=== PATIENT | male | born 1965 | race Caucasian/White ===

== ENCOUNTER 2016-10-02 11:36 | Emergency (ER) | payer BC ==
[~2016-10-02] VITALS: Ht 177.8 cm; Wt 84.0 kg
[~2016-10-02 11:36] MED LIST: ROBA750T PO; SERT-129 PO
[2016-10-02 11:38] VITALS: BP 136/76; PULSE 98; RESP 16; TEMP 98.3; O2SAT 99
--- NOTE | 2016-10-02 11:57 | PD ---
Physical Exam Time Seen by Provider: 11:56 Narrative 51 y/o male here for evaluation of lower back pain, R leg pain for a few months , worse since last night. Hx of R hip replacement. Vital signs reviewed. Seen at triage desk. Awaiting bed placement. Data Data Last Documented VS Vital Signs Date Time Temp Pulse Resp B/P Pulse Ox O2 Delivery O2 Flow Rate FiO2 10/02/16 11:38 98.3 98 16 136/76 99 MDM Medical Record Reviewed: Yes Supervised Visit with HOWARD: No Jeremias Peraza Oct 02, 2016 11:57
[2016-10-02] MEDS ORDERED: ZOLO100T PO (13:43)
[2016-10-02] MEDS ORDERED: KETOROLAC TROMETHAMINE 60 MG/2 ML (IM) VIAL IM ONE (13:45)
[2016-10-02] MEDS ORDERED: ORPHENADRINE INJ 60 MG/2 ML AMP IM ONE (13:45)
--- NOTE | 2016-10-02 13:49 | PD ---
HPI Chief Complaint: Back/ Neck Pain or Injury Time Seen by Provider: 13:42 Travel History International Travel<30 days: No Contact w/Intl Traveler<30days: No Traveled to known affect area: No History of Present Illness HPI 51-year-old male presents emergency Department with complaint of right hip pain and right lower back pain with worsening last night. Denies new or recent injury. He has history of right hip replacement 1 year ago and 6 months ago it started giving him his problems. He's been following up with primary care with multiple x-rays that showed possible loosening of hardware in the hip. He has also been told that he might have sciatica. He does have a referral to Dr. Knox, orthopedic, and has an appointment in one month. Last night he had worsening of pain and was unable to move his leg without severe pain. He is using crutches for support. He has taken ibuprofen and Tylenol with minimal relief of symptoms. Pain is worse with movement, bearing weight. Denies paresthesias, loss of sensation to the affected extremity. Reports decreased range of motion at the hip. Denies fever, vomiting. Denies IV drug use, cancer. Denies encopresis, incontinence, saddle anesthesias. Has no other medical complaints. No known allergies. No other modifying factors or associated signs and symptoms. PFSH Past Medical History Hx Anticoagulant Therapy: No Anxiety: Yes Cardiovascular Problems: Yes (CHOL) Diabetes: No Social History Alcohol Use: Yes Tobacco Use: No Substance Use: No Allergies-Medications (Allergen,Severity, Reaction): Coded Allergies: No Known Allergies (Unverified , 10/02/16) Reported Meds & Prescriptions Reported Meds & Active Scripts Active Flexeril (Cyclobenzaprine HCl) 10 Mg Tab 10 Mg PO TID PRN Ibuprofen 800 Mg Tab 800 Mg PO Q6HR PRN Reported Zoloft (Sertraline HCl) 100 Mg Tab 150 Mg PO DAILY Review of Systems Except as stated in HPI: all other systems reviewed are Neg Physical Exam Narrative GENERAL: Well-nourished, well-developed male patient, in no acute distress; afebrile, nontoxic-appearing SKIN: Warm and dry. HEAD: Atraumatic. Normocephalic. EYES: Pupils equal and round. No scleral icterus. No injection or drainage. ENT: Mucosa pink and moist. Airway patent. NECK: Trachea midline. CARDIOVASCULAR: Regular rate. RESPIRATORY: No accessory muscle use. GASTROINTESTINAL: Flat. MUSCULOSKELETAL: Unable to assess range of motion of the hip secondary to patient guarding and pain; surgical scar noted; area is without erythema, edema , or ecchymosis; [-] tenderness on abduction; no leg length discrepancy. Right lower extremity is supple and non-tense with 2+ pedal pulse and sensory intact and without erythema or edema. BACK: Point tenderness on palpation to the right iliosacral area. NEUROLOGICAL: Awake and alert. Oriented 3. No obvious cranial nerve deficits. Motor grossly within normal limits. Normal speech. PSYCHIATRIC: Appropriate mood and affect; insight and judgment normal. Data Data Last Documented VS Vital Signs Date Time Temp Pulse Resp B/P Pulse Ox O2 Delivery O2 Flow Rate FiO2 10/02/16 11:38 98.3 98 16 136/76 99 Orders Hip, Uni(Ap&Lat) W Ap Pelvis (10/02/16 13:41) Ketorolac Inj (Toradol Inj) (10/02/16 13:45) Orphenadrine Inj (Norflex Inj) (10/02/16 13:45) MDM Medical Decision Making Medical Screen Exam Complete: Yes Emergency Medical Condition: Yes Medical Record Reviewed: Yes Differential Diagnosis Arthritis, hip pain, sciatica Narrative Course 51-year-old male with history of right hip replacement 1 year ago with continued pain over the past 6 months and worsening of pain last night. He has an appointment with Dr. Mckeon, orthopedics, in one month but was concerned of increasing pain last night. Denies new or recent injury. Denies fever, vomiting. He is afebrile and nontoxic-appearing. Unable to assess range of motion secondary to patient guarding and pain. The patient does have reproducible tenderness to the right iliosacral area and has been told he may be experiencing sciatica. Toradol and Norflex administered in the ER. Right hip with AP pelvis x-ray ordered. 1450: Right hip x-ray with no acute findings and prosthesis in place. Instructed patient to follow up with orthopedic at scheduled appointment. Ibuprofen and Flexeril prescribed for home. Patient has crutches for support. Patient verbalizes understanding and agreement with treatment plan. Patient is medically cleared and stable for discharge. Discussed reasons to return to the emergency department. Instructed patient to follow up with primary care provider. Patient agrees with treatment plan. The patients vital signs are stable and the patient is stable for outpatient follow-up and treatment. Patient discharged home, stable and in no acute distress. Diagnosis Primary Impression: Right hip pain Referrals: Orthopaedic Surgeon Primary Care Physician Patient Instructions: General Instructions, Hip Pain (ED) Departure Forms: Tests/Procedures, Work Release Special Instructions: Unable to return to work until cleared by orthopedics Additional Instructions: Tylenol or ibuprofen as directed and as needed for pain Flexeril as prescribed and as needed for muscle spasms Heating pad and/or ice to affected area to reduce pain Avoid aggravating activities; increase activity as tolerated Crutches as needed for support Follow-up with primary care provider Follow-up with orthopedic surgeon Return to emergency department immediately with worsening of symptoms Med/Other Pt SpecificInfo: Prescription(s) given Scripts Cyclobenzaprine (Flexeril)10 Mg Tab10 Mg PO TID PRN (MUSCLE SPASM) #30 TAB Ref 0 Prov:Whitney Oconnor 10/02/16 Ibuprofen 800 Mg Ulh738 Mg PO Q6HR PRN (PAIN) #30 TAB Ref 0 Prov:Whitney Oconnor 10/02/16 Disposition: 01 DISCHARGE HOME Condition: Stable Whitney Oconnor Oct 02, 2016 13:49
--- NOTE | 2016-10-02 14:36 | RADRPT ---
EXAM DATE/TIME: 10/02/2016 14:05 [facility] COMPARISON: No previous studies available for comparison. INDICATIONS : Right hip pain, no injury. MEDICAL HISTORY : None. SURGICAL HISTORY : Right total hip replacement in 2014 ENCOUNTER: Initial ACUITY: 4 - 6 days PAIN SCORE: 10/10 LOCATION: Right proximal hip FINDINGS: The patient is status post total hip arthroplasty. Prosthesis is well seated. Alignment is anatomic . Fracture is not appreciated. CONCLUSION: Negative for fracture. Victor Hugo Cruz MD FACR on October 02, 2016 at 14:23 Board Certified Radiologist. This report was verified electronically.
[2016-10-02] MEDS ORDERED: IBUP800T23 PO (14:52)
[2016-10-02] MEDS ORDERED: CYCL1TAB29 PO (14:52)
== END 2016-10-02 15:15 | disposition home or self-care (01) ==
LOC: NEPK 11:36
DX: M25.551 Pain in right hip (principal); Z96.641 Presence of right artificial hip joint
CPT/HCPCS: 73502; 96372; 99284; J1885; J2360

== ENCOUNTER → 2016-10-17 | Day surgery (SDC) | payer BC ==
[~2016-10-17] MED LIST changes: +CYCL1TAB29 PO; +IBUP800T23 PO; +IOHEXOL 180 MG/ML 20 ML VIAL (for RAD DIAG) ONE; +LACTATED RINGER'S 1000 ML INJ 1,000 ML ONE; +MIDAZOLAM HCL 2 MG/2 ML VIAL ONE; +PROPOFOL 500 MG/50 ML BTL IV ONE; -ROBA750T PO; -SERT-129 PO; +ZOLO100T PO
--- NOTE | 2016-10-17 15:45 | TN ---
cc: MARLEEN EISENBERG M.D. DATE OF SURGERY: October 17, 2016 PREOPERATIVE DIAGNOSIS Right painful total hip arthroplasty, possible malfunction prosthesis, possible infected total hip arthroplasty; right hip stiffness (arthrogryposis). POSTOPERATIVE DIAGNOSIS Right painful total hip arthroplasty, possible malfunction prosthesis, possible infected total hip arthroplasty; right hip stiffness (arthrogryposis). PROCEDURE: Right hip aspiration, hip arthrogram, manipulation, fluoroscopic guidance of needle under anesthesia. SURGEON Warren Eisenberg MD ASSESSMENT Staff SPECIMENS Right hip synovial fluid sent for Gram stain aerobic, anaerobic culture and sensitivity and for fungal smear and cultures. ESTIMATED BLOOD LOSS: NONE. COMPLICATIONS: None. ANESTHESIA; General. TIVA. DRAINS: None. TOURNIQUET TIME: N/A. CONDITION: Stable PLAN OF ACTIVITY: The plan of activity is per orders. PROCEDURE: The patient was brought into the operating room and had satisfactory anesthesia by the Department of Anesthesia. PLAN The right hip and lower extremity was prepped and draped in usual sterile manner. Under fluoroscopic guidance an 18 gauge spinal needle introduced into the right hip joint. It aspirated approximately 1 cc of blood-tinged fluid. This was sent to microbiology for gram stain culture, aerobic, anaerobic culture sensitivity and for fungal smear and culture. The 20 cc of Pantopaque was used for arthrogram. The dye was injected in the same spot as the needle. I appeared to be tracking to the femoral component and also possibly to the acetabular component. An 18 gauge spinal needle was remove manipulation of the hip was preformed. 120 degrees abduction was 45 degrees of good rotation. Band-Aid was placed over the aspiration site. The patient tolerated the procedure well. In stable and satisfactory condition. X-RAYS Right hip two views took from my operative border. Status post right hip manipulation no obvious fracture dislocation subluxation. ASSESSMENT AND PLAN: Status post right total hip arthroplasty with possible radiographic loosening of the acetabular component and femoral component. MD ALEXANDER Mayo/aleksey /2:37 PM /3:50 PM
== END | disposition home or self-care (01) ==
LOC: ESDC 12:53
PROVIDERS: ATTEND Orthopaedic Surgery Orthopaedic Surgery of the Spine
DX: M25.651 Stiffness of right hip, not elsewhere classified (principal); T84.84XA Pain due to internal orthopedic prosthetic devices, implants and grafts, initial encounter; Q68.8 Other specified congenital musculoskeletal deformities
CPT/HCPCS: 01200; 27275; 73501; 76000; 86403; 87070; 87102; 87205; 87206; J2250; J3010; J7120; Q9965

== ENCOUNTER 2016-10-24 07:47 | Inpatient (IN) | payer BC ==
[~2016-10-24] VITALS: Ht 177.8 cm; Wt 74.5 kg
[~2016-10-24 07:47] MED LIST changes: -CYCL1TAB29 PO; -IBUP800T23 PO; -IOHEXOL 180 MG/ML 20 ML VIAL (for RAD DIAG) ONE; -LACTATED RINGER'S 1000 ML INJ 1,000 ML ONE; -MIDAZOLAM HCL 2 MG/2 ML VIAL ONE; -PROPOFOL 500 MG/50 ML BTL IV ONE
[2016-10-26 08:40] VITALS: BP 127/88; PULSE 81; RESP 16; TEMP 98.1; O2SAT 98
[2016-10-26] MEDS ORDERED: VANCOMYCIN 1000 MG/NS 250 ML (for <70 kg) IV SCH ×2 (08:45)
[2016-10-26] MEDS ORDERED: SODIUM CHLORID 0.9% 500 ML IV PRN (08:45)
[2016-10-26] MEDS ORDERED: POVIDONE IODINE 5% (ANTISEPSIS KIT) 4 APPLICATIONS EACH NARE PRN (08:45)
[2016-10-26] MEDS ORDERED: INSULIN HUMAN REGULAR 1,000 UNITS/10 ML VIAL SQ PRN (08:45)
[2016-10-26] MEDS ORDERED: LACTATED RINGER'S 1000 ML IV PRN (08:45)
[2016-10-26] MEDS ORDERED: METOPROLOL TARTRATE 25 MG TAB PO PRN (08:45)
[2016-10-26] MEDS ORDERED: ceFAZolin 2 GM PREMIX 50 ML IV SCH (08:45)
[2016-10-26] MEDS ORDERED: CHLORHEXIDINE GLUCONATE 2 % 1 PACK (2 CLOTHS) TOPICAL PRN (08:45)
[2016-10-26] MEDS ORDERED: CHLORHEXIDINE GLUCONATE 4% SOLN 120 ML BTL TOPICAL SCH (08:45)
[2016-10-26] MEDS ORDERED: NORC5TAB PO (08:54)
[2016-10-26] MEDS ORDERED: FAMOTIDINE 20 MG/2 ML VIAL ONE (09:58)
[2016-10-26] MEDS ORDERED: MIDAZOLAM HCL 2 MG/2 ML VIAL ONE (09:58)
[2016-10-26] MEDS ORDERED: DEXAMETHASONE SOD PHOS 4 MG/ML VIAL ONE (09:58)
[2016-10-26] MEDS ORDERED: SODIUM CHLOR 0.9% 250 ML INJ 250 ML ONE (10:15)
[2016-10-26] MEDS ORDERED: VANCOMYCIN HCL 1000 MG VIAL ONE (10:16)
[2016-10-26] MEDS ORDERED: LACTATED RINGER'S 1000 ML INJ 2,000 ML IV ONE (12:00)
[2016-10-26] MEDS ORDERED: PHENYLEPH/NS 1000 MCG/10 ML SYR IV ONE (12:00)
[2016-10-26] MEDS ORDERED: BUPIVACAINE LIPOSO PF 1.3% INJ 20 ML in SODIUM CHLORIDE 0.9% INJ 40 ML P-ARTICULR SCH (12:00)
[2016-10-26] MEDS ORDERED: PROPOFOL 200 MG/20 ML AMP IV ONE (12:00)
[2016-10-26] MEDS ORDERED: NORMOSOL R INJ 3,000 ML IV ONE (12:00)
[2016-10-26] MEDS ORDERED: TOBRAMYCIN SULFATE 1200 MG VIAL OTHER ONE (12:00)
[2016-10-26] MEDS ORDERED: GENTAMICIN SULFATE 80 MG/2 ML VIAL IRRIGATION ONE (12:06)
[2016-10-26] MEDS ORDERED: VANCOMYCIN HCL 1000 MG VIAL OTHER ONE (12:54)
[2016-10-26] MEDS: LACTATED RINGER'S 1000 ML INJ 1,000 ML IV SCH (14:33)
[2016-10-26 14:39] LABS: AUTOMATED NEUTROPHIL # 7.8 TH/MM3 (1.8-7.7); BASOPHIL # 0.1 TH/MM3 (0-0.2); BASOPHIL % 0.6 % (0.0-2.0); EOSINOPHIL % 0.2 % (0.0-4.0); HEMO FLAGS DIFF FINAL; LYMPH % 11.2 % (9.0-44.0); MEAN CELL VOLUME 83.9 FL (80.0-100.0); MEAN CORPUSCULAR HEMOGLOBIN 28.6 PG (27.0-34.0); MEAN CORPUSCULAR HGB CONC 34.1 % (32.0-36.0); MONO % 1.6 % (0.0-8.0); NEUT % 86.4 % (16.0-70.0); PLATELET COUNT 292 TH/MM3 (150-450); RED CELL DISTRIBUTION WIDTH 14.2 % (11.6-17.2); WHITE BLOOD COUNT 9.1 TH/MM3 (4.0-11.0)
--- NOTE | 2016-10-26 14:40 | HHI.PR ---
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 and Cesar Garcia M.D. Poker Manager(s): Fatimah Moreno PA-C Procedure: Removal of infected right total hip arthroplasty, irrigation and debridement, insertion of temp. prosthetic with antibiotic beads Complications: none Specimen(s) removed: 3 tissue samples Estimated blood loss: 1500cc Anesthesia: General Drains: None Patient to: PACU Patient Condition: Good Implant/Devices: SEE IMPLANT LOG (if applicable) Date/Time of Procedure: SEE SURGICAL CARE RECORD Herman Garcia MD Oct 26, 2016 14:40
[2016-10-26] MEDS ORDERED: WALKER WHEELS/F1 MIS (14:41)
[2016-10-26] MEDS ORDERED: BEDSIDE COMMODE1 MI1 (14:42)
[2016-10-26] MEDS ORDERED: ONDANSETRON HCL 4 MG/2 ML VIAL IVP PRN (14:45)
[2016-10-26] MEDS ORDERED: MORPHINE SULFATE 8 MG/ML INJ IM PRN (14:45)
[2016-10-26] MEDS ORDERED: ALUMINUM/MAGNESIUM/SIMETH 30 ML CUP PO PRN (14:45)
[2016-10-26] MEDS ORDERED: SODIUM CHLORIDE 0.9% FLUSH 5 ML FLUSH IVF PRN (14:45)
[2016-10-26] MEDS: SODIUM CHLORIDE 0.9% FLUSH 5 ML FLUSH IVF SCH ×2 (14:45→21:00)
[2016-10-26] MEDS ORDERED: Post-op Orders (for Pharmacy) MISC XX ONE (14:45)
[2016-10-26] MEDS ORDERED: ZOLPIDEM TARTRATE 5 MG TAB PO PRN (14:45)
--- NOTE | 2016-10-26 14:45 | HHI.FF ---
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 Starting on 11/10, text/call result to Fatimah VILCHIS [phone] (out of town until 11/07) Administration of IV abx through PICC line I have seen patient Hussain Santiago on 10/26/16. My clinical findings support the need for the requested home health care services because: Limited ability to care for self I certify that my clinical findings support that this patient is homebound because: Post-op weakness Unsteady gait/balance Herman Garcia MD Oct 26, 2016 14:45
--- NOTE | 2016-10-26 14:55 | RADRPT ---
EXAM DATE/TIME: 10/26/2016 11:34 [facility] COMPARISON: HIP RIGHT AP ONLY WO AP PELVIS, October 17, 2016, 13:11. INDICATIONS : Right anterior hip hardware removal with antibiotic spacer placement. MEDICAL HISTORY : Arthritis. SURGICAL HISTORY : Right total hip replacement. ENCOUNTER: Initial ACUITY: 1 day PAIN SCORE: Non-responsive. LOCATION: Right anterior hip. FINDINGS: A two view examination of the right hip was performed. Postsurgical changes following removal of a ri ght hip prosthesis. Antibiotic spacer has been placed. CONCLUSION: Status post removal of right hip replacement and placement of an antibiotic spacer. David Alfredo MD on October 26, 2016 at 14:51 Board Certified Radiologist. This report was verified electronically.
[2016-10-26] MEDS ORDERED: *morphine SULFATE 8 MG/ML PERIprocedure ONLY ONE (15:08)
[2016-10-26 15:23] VITALS: BP 73/40; PULSE 61; RESP 16; TEMP 97.2; O2SAT 100
[2016-10-26] MEDS ORDERED: DO NOT ADM ANY ANTICOAGULANT DRUGS PRN (15:45)
[2016-10-26] MEDS ORDERED: PILL SPLITTER OTHER PRN (15:45)
--- NOTE | 2016-10-26 16:00 | RADRPT ---
EXAM DATE/TIME: 10/26/2016 15:05 [facility] COMPARISON: HIP RIGHT (AP&LAT 2/3VWS) W AP PELVIS, October 02, 2016, 14:05. FLUOROSCOPY PORTABLE UP TO 1HR, September, 0:00. HIP RIGHT AP ONLY WO AP PELVIS, October 17, 2016, 13:11. HIP RIGHT (AP&LAT 2/3VWS) WO AP PELVIS, October 26, 2016, 11:34. INDICATIONS : Post-op removal of right hip arthroplasty with placement of antibiotic bone spacer. MEDICAL HISTORY : Arthritis. SURGICAL HISTORY : Right total hip replacement. ENCOUNTER: Initial ACUITY: 1 day PAIN SCORE: 5/10 LOCATION: Right hip FINDINGS: There has been interval removal of a right total hip arthroplasty with placement of an antibiotic spa cer. Antibiotic pellets are also present in the operative bed. Configuration is satisfactory. The adj acent pelvis remains intact and unremarkable. CONCLUSION: Satisfactory appearance post right RAHEEM hardware removal Dallas Baca MD on October 26, 2016 at 15:51 Board Certified Radiologist. This report was verified electronically.
[2016-10-26] MEDS ORDERED: *HYDROmorphone PF 1 MG VIAL PERIprocedural Use ONLY ONE ×2 (16:25→16:31)
[2016-10-26 16:55] LABS: HEMATOCRIT 30.2 % (39.0-51.0); REVIEW FLAG FINAL
[2016-10-26 17:11] VITALS: BP 93/54; PULSE 88; RESP 16; TEMP 97.2; O2SAT 100
[2016-10-26] MEDS: ACETAMINOPHEN/HYDROcodone 325 MG/7.5 MG TAB PO PRN ×3 (17:50→22:13)
[2016-10-26 18:54] VITALS: BP 111/67; PULSE 88; RESP 20; TEMP 97.3; O2SAT 99
[2016-10-26 20:45] VITALS: BP 108/61; PULSE 89; RESP 17; TEMP 97.7; O2SAT 97
[2016-10-26] MEDS: CYCLOBENZAPRINE HCL 10 MG TAB PO PRN (21:59)
[2016-10-27] VITALS (11 sets, daily range): BP systolic 96–122; BP diastolic 54–69; PULSE 62–100; RESP 16–18; TEMP 97.5–98.5; O2SAT 96–98
[2016-10-27] MEDS: ACETAMINOPHEN/HYDROcodone 325 MG/7.5 MG TAB PO PRN ×6 (01:56→20:57)
[2016-10-27] MEDS: LACTATED RINGER'S 1000 ML INJ 1,000 ML IV SCH ×3 (03:03→15:34)
--- NOTE | 2016-10-27 07:12 | PD.ORT.PN ---
Subjective Post Op Day #: POD#1 R Hip Removal infected,loose THR;antibiotic spacer Subjective Remarks C/O post op pain No sob,chest pain Explained to patient operative findings;answered multiple questions Objective Vitals Vital Signs Date Time Temp Pulse Resp B/P Pulse Ox O2 Delivery O2 Flow Rate FiO2 10/27/16 04:25 97.7 68 16 99/54 98 10/27/16 00:58 97 Nasal Cannula 2.00 10/27/16 00:03 97.5 83 18 115/64 96 10/26/16 20:45 97.7 89 17 108/61 97 10/26/16 18:54 97.3 88 20 111/67 99 10/26/16 17:45 96 16 98/56 100 Nasal Cannula 2 10/26/16 17:30 90 16 100/55 100 Nasal Cannula 2 10/26/16 17:15 85 16 93/52 100 Nasal Cannula 2 10/26/16 17:11 97.2 88 16 93/54 100 10/26/16 17:00 80 16 93/53 100 Nasal Cannula 2 10/26/16 16:45 76 16 91/54 100 Nasal Cannula 2 10/26/16 16:30 73 16 110/59 100 Nasal Cannula 2 10/26/16 16:15 67 16 79/43 100 Nasal Cannula 2 10/26/16 16:00 66 16 87/64 100 Nasal Cannula 2 10/26/16 15:45 64 16 85/48 100 Nasal Cannula 2 10/26/16 15:40 66 16 92/54 100 Nasal Cannula 2 10/26/16 15:30 97.2 64 16 85/48 100 Nasal Cannula 2 10/26/16 15:23 97.2 61 16 73/40 100 10/26/16 15:20 62 16 74/41 100 Nasal Cannula 2 10/26/16 15:15 60 16 73/36 100 Nasal Cannula 2 10/26/16 15:10 59 16 55/26 100 Nasal Cannula 2 10/26/16 15:00 66 16 86/59 100 Nasal Cannula 2 10/26/16 14:56 97.2 66 16 94/52 100 Nasal Cannula 2 10/26/16 08:40 98.1 81 16 127/88 98 I/O 10/26/16 10/26/16 10/26/16 10/27/16 10/27/16 10/27/16 07:00 15:00 23:00 07:00 15:00 23:00 Intake Total 5000 ml 2871 ml 937 ml Output Total 2120 ml 1250 ml 1250 ml Balance 2880 ml 1621 ml -313 ml Intake Oral 730 ml 480 ml IV Total 1641 ml 457 ml Packed Cells 500 ml Other 5000 ml Output Urine Total 1250 ml 1250 ml Estimated Blood Loss 1500 ml Other 620 ml # Voids 1 # Bowel Movements 0 Result Diagram: 10/26/16 1612 Imaging Last 24 hours Impressions Pelvis X-Ray 10/26/16 1433 Signed Impressions: Service Date/Time: September 15:05 - CONCLUSION: Satisfactory appearance post right RAHEEM hardware removal Dallas Baca MD Objective Remarks N/V intact dressings dry Assessment & Plan Assessment and Plan Ortho stable Await ID evaluation/management Await C+S results PICC line D/C home on October 29 with [facility] R LE 25% WBA Coumadin,TEDS,Sequentials for DVT prophylaxsis Herman Garcia MD Oct 27, 2016 07:12
[2016-10-27 07:31] LABS: INTERNATIONAL NORMALIZED RATIO 1.1 RATIO; PROTHROMBIN TIME - PATIENT 11.7 SEC (9.8-11.6)
[2016-10-27] MEDS: SERTRALINE HCL 100 MG TAB PO SCH (09:35)
[2016-10-27] MEDS: SODIUM CHLORIDE 0.9% FLUSH 5 ML FLUSH IVF SCH ×2 (09:35→20:51)
[2016-10-27] MEDS: CYCLOBENZAPRINE HCL 10 MG TAB PO PRN (09:36)
--- NOTE | 2016-10-27 11:35 | HHI.FF ---
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 [] May leave port accessed during therapy. [] May leave peripheral site accessed for duration of therapy. [x] If patient has SOB or respiratory distress, check oxygen saturation. If less than 90% or clinical signs of respiratory distress, administer oxygen at 2 L/min. via nasal cannula and notify physician. [x] Anaphylaxis/Reaction orders: * Stop infusion. * Keep IV line open with saline flush. * Notify physician. * Monitor vital signs every 15 minutes until symptoms resolve. * Check Oxygen saturation; Oxygen at 2 L/min. via nasal cannula if less than 90% or clinical signs of respiratory distress. * Administer diphenhydramine (Benadryl) 25 mg IV STAT, (unless patient has received as pre-med). May repeat once, if necessary. * Solu-Cortef 250 mg IVP over 30-60 seconds, use 100 mg vials for each dissolution. * Epinephrine (1mg/1 ml) 0.3 mg subcutaneously or IVP now with any signs of respiratory distress. * Check with physician for new additional pre-med orders if patient is re- challenged or re-treated. [x] May remove PICC line when treatment complete, after confirming with Physician. [x] If the patient is admitted to the hospital, the ED, or transferred via EVAC , complete transfer form including medication reconciliation order sheet. Laboratory Tests Weekly Labs: BMP, Vancomycin Trough Additional Information Follow up with ID Dr. Akhtar in 1 week. José Miguel Briseno MD Oct 27, 2016 11:35
[2016-10-27] MEDS ORDERED: WARFARIN SOD 5 MG TAB PO ONE (14:00)
[2016-10-27] MEDS ORDERED: WARFARIN SOD 7.5 MG TAB PO ONE (14:00)
--- NOTE | 2016-10-27 14:11 | MB ---
cc: HERMAN EISENBERG M.D., FRANKLYN F. MD DATE OF CONSULTATION: 10/27/2016 REQUESTING PHYSICIAN: Herman Eisenberg MD. REASON FOR CONSULTATION: Infected right hip arthroplasty. HISTORY OF PRESENT ILLNESS This is a 51-year-old white male was admitted to the hospital for removal of right total hip arthroplasty due to infection. The patient was admitted and he and that underwent removal of the prosthetic left hip device yesterday. He underwent irrigation and debridement and insertion of antibiotic bone spacer. The full operative report is not available to me at this time. This consultation is requested for antibiotic management of this patient. The patient reports that he had the prosthesis inserted about a year and half ago in [place]. He stated that he started getting some problems with it approximately 6 months after and gradually over time he continued to have problems. He was evaluated at a hospital in [place] last fall for pain and swelling of the right hip. He noted that there was an area of redness at the time. He states that an aspiration was performed at [facility] [address] and there was no growth of bacteria. He was not given any antibiotics. The patient lately has been experiencing more pain at the hip, and was evaluated by orthopedic surgery and subsequently brought into the hospital for removal of the device. The culture from the surgery is pending. The gram stain showed no white cells and no organisms. Reportedly a previous culture on October 17 revealed to group B beta strep. The new culture was is pending. The patient is in no acute distress. Denies fever, chills, nausea, vomiting or other symptoms except for pain in the right hip. PAST MEDICAL HISTORY 1. Hypercholesteremia 2. Right hip replacement 3. Anxiety disorder ALLERGIES NO KNOWN DRUG ALLERGIES. MEDICATIONS 1. Coumadin. 2. Colace. 3. Cefazolin 4. Zoloft. 5. Flexeril. SOCIAL HISTORY The patient is single. No tobacco. Occasional alcohol approximately two drinks a week. No illicit drugs. FAMILY HISTORY Noncontributory. REVIEW OF SYSTEMS Negative 10-point review of systems. PHYSICAL EXAMINATION: IN GENERAL: Physical exam is a pleasant well-developed, well-nourished male in no acute distress. He is awake and alert and oriented. VITAL SIGNS: Temperature 98.5, BP 105/57, respirations 18. Heart rate 74. HEAD, EYES, EARS, NOSE, AND THROAT: Extraocular movements grossly intact, pupils reactive to light. No icterus. No conjunctival erythema. Oropharynx moist mucosa without lesions. NECK: Supple without adenopathy. LUNGS: Clear to auscultation. HEART: Regular rate and rhythm without murmurs, rubs or gallops. ABDOMEN: Bowel sounds present, soft, nontender. RECTAL: Not performed. EXTREMITIES: Right hip, there is a surgical incision which appears clean and there is no erythema. No swelling visible. The rest of the extremities have no clubbing, cyanosis or edema. SKIN: No rash. NEUROLOGIC: Nonfocal PSYCHIATRIC: The patient calm and pleasant and cooperative. LABORATORY DATA WBC 9.1, platelets 292, 86% neutrophils, hemoglobin 8.8 wound culture pending. IMPRESSION 1. Infected right hip arthroplasty. 2. Patient status post removal of arthroplasty device. 3. Culture is pending. RECOMMENDATIONS Begin vancomycin intravenous while awaiting the culture results. Without final culture report is difficult to determine antibiotic for outpatient treatment. However, given the fact that he had group B strep I would place vancomycin. We can try to arrange for him to get vancomycin out patient if case management can have antibiotic arranged and follow up on the cultures as well. However, the culture final report maybe available by tomorrow. I will order vancomycin and we will order creatinine to check the patient's renal function and also we will monitor wound culture. I have written the discharge referral antibiotic form expedite arrangement for home antibiotics. I will also recommend the patient follow up with infectious Dr. Akhtar after discharge from the hospital. Once the arrangements are made by Case management for antibiotics at home and the PICC line is inserted. The patient can be discharged. Thank you for this consultation. José Miguel Briseno MD FD/aleksey /11:46 AM /2:01 PM
[2016-10-27] MEDS ORDERED: VANCOMYCIN INJ 2,300 MG in SODIUM CHLORID 0.9% 500 ML INJ 500 ML IV SCH (15:00)
--- NOTE | 2016-10-27 15:12 | HHI.FF ---
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 [] May leave port accessed during therapy. [] May leave peripheral site accessed for duration of therapy. [x] If patient has SOB or respiratory distress, check oxygen saturation. If less than 90% or clinical signs of respiratory distress, administer oxygen at 2 L/min. via nasal cannula and notify physician. [x] Anaphylaxis/Reaction orders: * Stop infusion. * Keep IV line open with saline flush. * Notify physician. * Monitor vital signs every 15 minutes until symptoms resolve. * Check Oxygen saturation; Oxygen at 2 L/min. via nasal cannula if less than 90% or clinical signs of respiratory distress. * Administer diphenhydramine (Benadryl) 25 mg IV STAT, (unless patient has received as pre-med). May repeat once, if necessary. * Solu-Cortef 250 mg IVP over 30-60 seconds, use 100 mg vials for each dissolution. * Epinephrine (1mg/1 ml) 0.3 mg subcutaneously or IVP now with any signs of respiratory distress. * Check with physician for new additional pre-med orders if patient is re- challenged or re-treated. [x] May remove PICC line when treatment complete, after confirming with Physician. [x] If the patient is admitted to the hospital, the ED, or transferred via EVAC , complete transfer form including medication reconciliation order sheet. Laboratory Tests Weekly Labs: BMP Additional Information Follow up with ID DR. Akhtar in 1 week. José Miguel Briseno MD Oct 27, 2016 15:12
--- NOTE | 2016-10-27 15:16 | HHI.IDPN ---
Note Infectious Disease Note ID Addendum to dictation. Culture has beta streptococci. I will change the outpatient IV antibiotic to Ceftriaxone. Duration 6 weeks. Discussed with case management and new infusion form filled out. José Miguel Briseno MD Oct 27, 2016 15:16
[2016-10-27 15:23] LABS: HEMATOCRIT 29.3 % (39.0-51.0); REVIEW FLAG FINAL
[2016-10-27 15:40] LABS: BICARBONATE 31.5 MEQ/L (21.0-32.0)
--- NOTE | 2016-10-27 17:45 | RADRPT ---
EXAM DATE/TIME: 10/27/2016 17:18 [facility] COMPARISON: No previous studies available for comparison. INDICATIONS : PICC line placement. MEDICAL HISTORY : None. SURGICAL HISTORY : None. ENCOUNTER: Initial ACUITY: 1 day PAIN SCORE: 0/10 LOCATION: Bilateral chest FINDINGS: PICC line is in good position. Lungs are clear. The heart and pulmonary vascularity are normal. The portion of the bony skeleton visualized is unremarkable. CONCLUSION: PICC line in good position. Board Certified Radiologist. This report was verified electronically.
[2016-10-27] MEDS ORDERED: SODIUM CHLORIDE 0.9% FLUSH 10 ML FLUSH IV FLUSH PRN (18:45)
[2016-10-27] MEDS: DOCUSATE SODIUM 100 MG CAP PO SCH (20:50)
[2016-10-28] MEDS: LACTATED RINGER'S 1000 ML INJ 1,000 ML IV SCH ×2 (00:16→16:35)
[2016-10-28 00:22] VITALS: BP 114/62; PULSE 87; RESP 18; TEMP 98.2; O2SAT 96
[2016-10-28] MEDS: ACETAMINOPHEN/HYDROcodone 325 MG/7.5 MG TAB PO PRN ×5 (02:11→21:11)
[2016-10-28 04:28] VITALS: BP 108/63; PULSE 80; RESP 18; TEMP 98.2; O2SAT 96
[2016-10-28 06:28] LABS: INTERNATIONAL NORMALIZED RATIO 1.1 RATIO; PROTHROMBIN TIME - PATIENT 12.4 SEC (9.8-11.6)
[2016-10-28 08:00] VITALS: BP 114/68; PULSE 82; RESP 16; TEMP 98.6; O2SAT 95
[2016-10-28] MEDS: SERTRALINE HCL 100 MG TAB PO SCH (08:07)
[2016-10-28] MEDS: DOCUSATE SODIUM 100 MG CAP PO SCH (08:07)
[2016-10-28] MEDS: cefTRIAXone INJ 2,000 MG in SODIUM CHLORIDE 0.9% INJ 100 ML IV SCH (08:10)
[2016-10-28] MEDS: SODIUM CHLORIDE 0.9% FLUSH 10 ML FLUSH IV FLUSH SCH (08:11)
[2016-10-28] MEDS: SODIUM CHLORIDE 0.9% FLUSH 5 ML FLUSH IVF SCH (08:17)
[2016-10-28 12:00] VITALS: BP 114/65; PULSE 81; RESP 20; TEMP 96.9; O2SAT 95
--- NOTE | 2016-10-28 13:58 | PD.ORT.PN ---
Subjective Subjective Remarks Patient comfortable. Pain controlled. Objective Vitals Vital Signs Date Time Temp Pulse Resp B/P Pulse Ox O2 Delivery O2 Flow Rate FiO2 10/28/16 12:00 96.9 81 20 114/65 95 10/28/16 08:00 98.6 82 16 114/68 95 10/28/16 04:28 98.2 80 18 108/63 96 10/28/16 00:22 98.2 87 18 114/62 96 10/27/16 21:01 85 122/69 10/27/16 20:20 98.3 100 18 96/65 96 10/27/16 18:03 96 Nasal Cannula 2.00 10/27/16 15:48 97.7 74 18 104/56 96 I/O 10/27/16 10/27/16 10/27/16 10/28/16 10/28/16 10/28/16 07:00 15:00 23:00 07:00 15:00 23:00 Intake Total 480 ml 800 ml 1322 ml 739 ml Output Total 1250 ml 257 ml 600 ml 750 ml Balance -770 ml 543 ml 722 ml -11 ml Intake Oral 480 ml 800 ml 360 ml 240 ml IV Total 962 ml 499 ml Output Urine Total 1250 ml 257 ml 600 ml 750 ml # Bowel Movements 0 0 0 Result Diagram: 10/27/16 1503 10/27/16 1438 Other Results Laboratory Tests Test 10/28/16 05:06 Prothrombin Time 12.4 SEC (9.8-11.6) Prothromb Time International 1.1 RATIO Ratio Imaging Last 24 hours Impressions Pelvis X-Ray 10/26/16 1433 Signed Impressions: Service Date/Time: September 15:05 - CONCLUSION: Satisfactory appearance post right RAHEEM hardware removal Dallas Baca MD Objective Remarks N/V intact dressings dry Assessment & Plan Assessment and Plan Ortho stable ID evaluation/management C+S results - Group B Strep PICC line in place D/C home on October 29 with HHC R LE 25% WBA Coumadin,TEDS,Sequentials for DVT prophylaxsis Dr. Greenberg spoke and evaluated patient. Jaxon Esteban [facility] Oct 28, 2016 13:58
[2016-10-28] MEDS: WARFARIN SOD 5 MG TAB PO SCH (16:31)
[2016-10-28 17:00] VITALS: BP 112/65; PULSE 71; RESP 20; TEMP 97.6; O2SAT 95
[2016-10-28 20:20] VITALS: BP 110/66; PULSE 89; RESP 18; TEMP 98.2; O2SAT 95
[2016-10-29 00:30] VITALS: BP 110/63; PULSE 81; RESP 18; TEMP 97; O2SAT 95
[2016-10-29] MEDS: ACETAMINOPHEN/HYDROcodone 325 MG/7.5 MG TAB PO PRN ×5 (01:48→20:08)
[2016-10-29 08:00] VITALS: BP 128/76; PULSE 82; RESP 16; TEMP 97.6; O2SAT 97
--- NOTE | 2016-10-29 08:23 | PD.ORT.PN ---
Subjective Subjective Remarks Patient comfortable. Pain controlled. Objective Vitals Vital Signs Date Time Temp Pulse Resp B/P Pulse Ox O2 Delivery O2 Flow Rate FiO2 10/29/16 00:30 97.0 81 18 110/63 95 10/28/16 20:20 98.2 89 18 110/66 95 10/28/16 17:00 97.6 71 20 112/65 95 10/28/16 12:00 96.9 81 20 114/65 95 I/O 10/28/16 10/28/16 10/28/16 10/29/16 10/29/16 10/29/16 07:00 15:00 23:00 07:00 15:00 23:00 Intake Total 739 ml 1627 ml 240 ml 240 ml Output Total 750 ml 650 ml Balance -11 ml 1627 ml -410 ml 240 ml Intake Oral 240 ml 720 ml 240 ml 240 ml IV Total 499 ml 907 ml Output Urine Total 750 ml 650 ml # Voids 4 0 # Bowel Movements 0 0 0 0 Result Diagram: 10/27/16 1503 10/27/16 1438 Imaging Last 24 hours Impressions Pelvis X-Ray 10/26/16 1433 Signed Impressions: Service Date/Time: September 15:05 - CONCLUSION: Satisfactory appearance post right RAHEEM hardware removal Dallas Baca MD Objective Remarks Left hip N/V intact dressings C/D/I calves soft negative Devon's Assessment & Plan Assessment and Plan Ortho stable ID evaluation/management C+S results - Group B Strep PICC line in place D/C home on October 29 with HHC R LE 25% WBA Coumadin,TEDS,Sequentials for DVT prophylaxsis Orthopedically stable for discharge. Make sure IV antibiotic therapy is set-up. F/u with Dr. Garcia or PA in office. Jaxon Esteban Oct 29, 2016 08:23
[2016-10-29 08:25] LABS: INTERNATIONAL NORMALIZED RATIO 1.3 RATIO; PROTHROMBIN TIME - PATIENT 14.7 SEC (9.8-11.6)
[2016-10-29] MEDS: SODIUM CHLORIDE 0.9% FLUSH 5 ML FLUSH IVF SCH (09:00)
[2016-10-29] MEDS: DOCUSATE SODIUM 100 MG CAP PO SCH ×2 (10:24→20:08)
[2016-10-29] MEDS: SERTRALINE HCL 100 MG TAB PO SCH (10:24)
[2016-10-29] MEDS: cefTRIAXone INJ 2,000 MG in SODIUM CHLORIDE 0.9% INJ 100 ML IV SCH (10:27)
[2016-10-29] MEDS: SODIUM CHLORIDE 0.9% FLUSH 10 ML FLUSH IV FLUSH SCH (10:34)
[2016-10-29 12:00] VITALS: BP 107/62; PULSE 82; RESP 16; TEMP 98.5; O2SAT 95
[2016-10-29 16:00] VITALS: BP 131/76; PULSE 103; RESP 16; TEMP 98.8; O2SAT 96
[2016-10-29] MEDS: WARFARIN SOD 5 MG TAB PO SCH (16:29)
[2016-10-29] MEDS: LACTATED RINGER'S 1000 ML INJ 1,000 ML IV SCH ×2 (16:30→20:13)
[2016-10-29 20:30] VITALS: BP 124/75; PULSE 75; RESP 18; TEMP 98.3; O2SAT 98
[2016-10-30 00:27] VITALS: BP 120/70; PULSE 81; RESP 18; TEMP 98.3; O2SAT 96
[2016-10-30] MEDS: ACETAMINOPHEN/HYDROcodone 325 MG/7.5 MG TAB PO PRN ×3 (02:54→12:36)
[2016-10-30 08:00] VITALS: BP 124/66; PULSE 80; RESP 20; TEMP 96.8; O2SAT 98
[2016-10-30] MEDS: SERTRALINE HCL 100 MG TAB PO SCH (08:42)
[2016-10-30] MEDS: DOCUSATE SODIUM 100 MG CAP PO SCH (08:42)
[2016-10-30] MEDS: SODIUM CHLORIDE 0.9% FLUSH 10 ML FLUSH IV FLUSH SCH (08:43)
[2016-10-30] MEDS: cefTRIAXone INJ 2,000 MG in SODIUM CHLORIDE 0.9% INJ 100 ML IV SCH (08:43)
[2016-10-30] MEDS: SODIUM CHLORIDE 0.9% FLUSH 5 ML FLUSH IVF SCH (08:48)
[2016-10-30] MEDS ORDERED: POLYETHYLENE GLYCOL 17 GM PKG PO SCH (11:00)
[2016-10-30] MEDS ORDERED: MAGNESIUM HYDROXIDE SUSP 30 ML CUP PO SCH (11:00)
[2016-10-30 11:59] LABS: INTERNATIONAL NORMALIZED RATIO 1.2 RATIO
[2016-10-30 12:00] VITALS: BP 124/69; PULSE 82; RESP 20; TEMP 97.6; O2SAT 95
[2016-10-30] MEDS: WARFARIN SOD 5 MG TAB PO SCH (14:48)
--- NOTE | 2016-11-14 09:01 | HHI.DS ---
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 Patient underwent right total hip arthroplasty in [place] in December of 2014. He did well for a period of time. He had insidious onset of right hip pain March 2016 which was improved by an exercise program. Beginning of September of 2016, patient had worsening hip pain to the point he could hardly ambulate. X-rays were performed which showed suspected loosening of his prosthesis. Labs were ordered which were suspicious of infection and bone scan was performed which was suspicious of loosening of femoral stem. Aspiration of the hip was performed at the surgery center and cultures were sent which grew back Group B strep. Patient was scheduled for removal of hip arthroplasty at that time. Imaging x-rays of the right hip are suspect for loosening of right total hip arthroplasty PE at Discharge Left hip N/V intact dressings C/D/I calves soft negative [facility] Hospital Course Patient was admitted to the hospital on the day of surgery. He underwent satisfactory anaesthesia on the day of surgery. He was treated with low dose coumadin the night before surgery and will be continued to be treated with low dose coumadin for four weeks post-operatively. He underwent removal of right total hip arthroplasty, irrigation and debridement, and insertion of temporary antibiotic spacer. He did well following the procedure. He was initiated on 25 % weight bearing right lower extremity following his procedure. He was followed by infectious disease, Dr. Briseno who followed his cultures and initiated antibiotics. PICC line was placed and cultures did return Group B strep. It was advised to be on Ceftriaxone for six weeks post-operatively. He was also treated with knee high TEDs and sequentials during his stay. He progressed well and was discharged home with home health nursing and therapy on pod #4. Pt Condition on Discharge: Stable Discharge Disposition: Disch w/ Home Health Serv Discharge Instructions Diet Instructions: Coumadin (Warfarin) Diet Activities You Can Perform: Partial Weight Bearing Additional Activity Instruc.: 25% wt bearing RLE with Fatimah Maurice Nov 14, 2016 09:01
--- NOTE | 2016-11-14 09:59 | MP ---
cc: CARO EISENBERG DATE OF SURGERY: 10/26/2016 PREOPERATIVE DIAGNOSIS 1. Status post right total hip replacement arthroplasty. 2. Infected right total hip replacement arthroplasty. POSTOPERATIVE DIAGNOSIS 1. Status post right total hip replacement arthroplasty. 2. Infected right total hip replacement arthroplasty. PROCEDURE 1. Irrigation and debridement of skin, subcutaneous tissue, muscle and bone of the right hip. 2. Removal of components of right total hip, extended anterior exposure. 3. Placement of an antibiotic-eluting temporary unipolar hip replacement arthroplasty. SURGEON Caro Eisenberg SANDBLASTER SUPERVISOR SURGEON Herman Eisenberg ANESTHESIA General. ESTIMATED BLOOD LOSS 600 cc. INDICATION This patient had a hip replacement approximately almost two years ago in [place]. The patient did well initially but over the last six months has had increasing pain in the region of the right hip. Studies show evidence of a Streptococcus infection in the right hip with suspect for loosening of components. He presents for the above procedure. DETAILS OF PROCEDURE The patient was brought to the operating room, anesthetized in they supine position and placed on the [place] table. The right leg was scrubbed with alcohol followed by Hibiclens followed by ChloraPrep and draped sterilely. Antibiotics were held. A timeout was done. An extended anterior incision was performed. The previous incision was excised. The interval between the tensor fascia sandra and the rectus was opened and explored further. This was carried up over the top of the anterior portion of the iliac crest and a portion of the tensor fascial sandra was taken down from its attachment with the periosteal rim. This was extended allowing exposure of both the cephalad and caudad portion of the femoral neck. Soft tissue was excised. Deep cultures were obtained and sent to pathology. A circumferential capsulectomy was performed allowing exposure to the acetabulum. The hip was dislocated anteriorly. This was exposed further and the lifting hook was utilized to lift the proximal femur. The leg was extended and brought down to the floor. We had excellent exposure and were able to remove the stem in a retrograde fashion. The canal was irrigated copiously. This was curetted of all fibrinous material. Deep cultures were sent to pathology a second time. Attention was directed to the acetabulum. The liner was removed allowing removal of a transfixation screw. We then used a cutting device around the shell. The liner was placed back in temporarily using the proper size head we were able to remove this with a 54 mm removing device. The shell was removed without removing very much bone. The wound was irrigated copiously and meticulously all of the capsule fibrinous-type debris and inflammatory tissue was excised down to good bleeding tissue. We sized this for an [employer] short stem, medium size 54 unipolar. The acetabulum was reamed up to about 56 mm down to good bleeding cancellous bone and centralized slightly. This was trialed and felt this was an adequate reduction. We marked on the stem where this would be screwed to have good offset and leg length as checked by intraoperative x-ray. The wound was irrigated copiously multiple times. The implant was inserted and cemented around the very top of it with methyl methacrylate impregnated with vancomycin and tobramycin. Separately calcium sulfate tablets were mixed with vancomycin and tobramycin. These were then placed in and around the incision. The deep fascia was approximated with interrupted 0 PDS. The area of the tensor fascia sandra to the rim of the ilium was repaired through bone with multiple sutures. The subcutaneous tissue was approximated with interrupted 0 PDS and skin with running intradermal 3-0 PDS. A sterile dressing was applied. The patient was awakened and taken to the recovery room in satisfactory condition. MD MAR Ayers/VILMA /8:00 AM /9:42 AM
== END 2016-10-30 16:11 | disposition home health service (06) | DRG 465 ==
LOC: HSDI 10-26 08:12 → N06B 10-26 18:13
PROVIDERS: ADMIT Orthopaedic Surgery Orthopaedic Surgery of the Spine; ATTEND Orthopaedic Surgery Orthopaedic Surgery of the Spine
PROC: 0SP90JZ Removal of Synthetic Substitute from Right Hip Joint, Open Approach (ICD-10-PCS; 2016-10-26)
PROC: 0SH908Z Insertion of Spacer into Right Hip Joint, Open Approach (ICD-10-PCS; 2016-10-26)
PROC: 02HV33Z Insertion of Infusion Device into Superior Vena Cava, Percutaneous Approach (ICD-10-PCS; principal; 2016-10-27)
DX: T84.51XA Infection and inflammatory reaction due to internal right hip prosthesis, initial encounter (principal); B95.1 Streptococcus, group B, as the cause of diseases classified elsewhere; E78.5 Hyperlipidemia, unspecified; Y83.1 Surgical operation with implant of artificial internal device as the cause of abnormal reaction of the patient, or of later complication, without mention of misadventure at the time of the procedure; F41.9 Anxiety disorder, unspecified; G89.18 Other acute postprocedural pain
CPT/HCPCS: 36430; 36569; 71010; 72170; 73502; 76000; 76937; 80048; 85014; 85018; 85025; 85610; 86403; 86850; 86900; 86901; 86920; 87015; 87070; 87102; 87116; 87176; 87205; 87206; 94150; C1776; J0690; J0696; J1100; J1170; J1580; J1642; J2250; J2270; J2370; J3010; J3260; J3370; J7040; J7050; J7120; P9016

== ENCOUNTER → 2017-01-23 | Day surgery (SDC) | payer BC ==
[~2017-01-23] MED LIST changes: +COUM5TAB PO; +COUM7.5T PO; +HYDR-3288 PO; +LACTATED RINGER'S 1000 ML INJ 1,000 ML ONE; +LIDOCAINE HCL 1% 50 ML VIAL ONE; +MIDAZOLAM HCL 2 MG/2 ML VIAL ONE; +PROPOFOL 200 MG/20 ML AMP IV ONE; +ZITHTAB PO
--- NOTE | 2017-01-23 15:12 | TN ---
cc: MARLEEN EISENBERG M.D. DATE OF SURGERY: January 23, 2017 PREOPERATIVE DIAGNOSIS 1. Right infected total hip arthroplasty status post right total hip arthroplasty December 29, [address] [facility]. 2. Status post a October 26, 2016 right hip removal of total hip components, extended anterior exposure, placement of antibiotic routine temporary unit polar hip replacement arthroplasty, irrigation and debridement. POSTOPERATIVE DIAGNOSIS: 1. Right infected total hip arthroplasty status post right total hip arthroplasty December 29, [address] [facility]. 2. Status post a October 26, 2016 right hip removal of total hip components, extended anterior exposure, placement of antibiotic routine temporary unit polar hip replacement arthroplasty, irrigation and debridement. PROCEDURE: Right hip aspiration, fluoroscopic guidance of needle, manipulation under anesthesia. SURGEON Warren Eisenberg MD ORTHODONTIC TECHNICIAN ASSISTANT Staff SPECIMENS 1. Right hip synovial fluid sent for 1, Anaerobic and aerobic culture and sensitivity. 2. Fungal smear and culture. ESTIMATED BLOOD LOSS: Estimated blood loss is none COMPLICATIONS None ANESTHESIA General DRAINS: None. CONDITION: Stable. PLAN OF ACTIVITY: Per orders. PROCEDURE The patient was operating room and had satisfactory general anesthesia by the part of Anesthesia. The right hip lower extremity was prepped and draped in the sterile. Under fluoroscopic guidance an 18 gauge spinal needle was introduced into the right hip joint. Right hip was aspirated with approximately 5 mL of blood-tinged synovial fluid sent to microbiology for anaerobic and aerobic culture and sensitivity and fungal smear and culture. Band-Aid placed injection site. Manipulation hip was performed under anesthesia. Flexion was to 1 degree abduction was 230 degrees limited rotation. The patient tolerated the procedure well and room in stable and satisfactory condition. MD ALEXANDER Mayo/aleksey /2:46 PM /2:58 PM
== END | disposition home or self-care (01) ==
LOC: ESDC 12:47
PROVIDERS: ATTEND Orthopaedic Surgery Orthopaedic Surgery of the Spine
DX: T84.51XD Infection and inflammatory reaction due to internal right hip prosthesis, subsequent encounter (principal); Z96.641 Presence of right artificial hip joint
CPT/HCPCS: 01200; 27275; 73501; 76000; 87070; 87102; 87205; 87206; J2250; J3010; J7120

== ENCOUNTER 2017-02-01 09:28 | Inpatient (IN) | payer BC ==
[~2017-02-01] VITALS: Ht 180.3 cm; Wt 84.8 kg
[~2017-02-01 09:28] MED LIST changes: -COUM5TAB PO; -COUM7.5T PO; -HYDR-3288 PO; -LACTATED RINGER'S 1000 ML INJ 1,000 ML ONE; -LIDOCAINE HCL 1% 50 ML VIAL ONE; -MIDAZOLAM HCL 2 MG/2 ML VIAL ONE; -PROPOFOL 200 MG/20 ML AMP IV ONE; -ZITHTAB PO
[2017-02-01] MEDS ORDERED: INSULIN HUMAN REGULAR 1,000 UNITS/10 ML VIAL SQ PRN (10:15)
[2017-02-01] MEDS ORDERED: METOPROLOL TARTRATE 25 MG TAB PO PRN (10:15)
[2017-02-01] MEDS ORDERED: CHLORHEXIDINE GLUCONATE 2 % 1 PACK (2 CLOTHS) TOPICAL PRN (10:15)
[2017-02-01] MEDS ORDERED: POVIDONE IODINE 5% (ANTISEPSIS KIT) 4 APPLICATIONS EACH NARE PRN (10:15)
[2017-02-01] MEDS ORDERED: LACTATED RINGER'S 1000 ML IV PRN (10:15)
[2017-02-01] MEDS ORDERED: SODIUM CHLORID 0.9% 500 ML IV PRN (10:15)
[2017-02-01] MEDS ORDERED: ZITHTAB PO (10:19)
[2017-02-01] MEDS ORDERED: COUM7.5T PO (10:19)
[2017-02-01] MEDS ORDERED: CHLORHEXIDINE GLUCONATE 4% SOLN 120 ML BTL TOPICAL SCH (10:30)
[2017-02-01] MEDS ORDERED: ceFAZolin 2 GM PREMIX 50 ML IV SCH (10:30)
[2017-02-01] MEDS ORDERED: VANCOMYCIN 1000 MG/NS 250 ML (for <70 kg) IV SCH ×2 (10:30)
[2017-02-01] MEDS ORDERED: ACETAMINOPHEN 1000 MG/100 ML 100 ML IV ONE (11:45)
[2017-02-01] MEDS ORDERED: PROPOFOL 500 MG/50 ML INJ 50 ML ONE (12:06)
[2017-02-01] MEDS ORDERED: GENTAMICIN SULFATE 80 MG/2 ML VIAL ONE (12:06)
[2017-02-01] MEDS ORDERED: TRANEXAMIC ACID IV SCH (13:00)
[2017-02-01] MEDS ORDERED: SODIUM CHLORIDE 0.9% IV SCH (13:00)
[2017-02-01] MEDS ORDERED: ROPIVACAINE PERI-ARTICULAR INJECTION. P-ARTICULR SCH ×5 (13:00)
[2017-02-01] MEDS ORDERED: DEXAMETHASONE SOD PHOS 4 MG/ML VIAL IV ONE (13:06)
[2017-02-01] MEDS ORDERED: GLYCOPYRROLATE 1 MG/5 ML SYRINGE IV PUSH ONE (13:06)
[2017-02-01] MEDS ORDERED: PROPOFOL 200 MG/20 ML AMP IV ONE (13:06)
[2017-02-01] MEDS ORDERED: SUCCINYLCHOLINE CHLORIDE 100 MG/5 ML SYRINGE IV PUSH ONE (13:06)
[2017-02-01] MEDS ORDERED: ePHEDrine/NS 25 MG/5 ML SYR IV ONE (13:06)
[2017-02-01] MEDS ORDERED: ROCURONIUM INJ 50 MG/5 ML SYRINGE IV PUSH ONE (13:06)
[2017-02-01] MEDS ORDERED: PHENYLEPH/NS 1000 MCG/10 ML SYR IV ONE (13:06)
[2017-02-01] MEDS ORDERED: MIDAZOLAM HCL 2 MG/2 ML VIAL IV ONE (13:06)
[2017-02-01] MEDS ORDERED: LIDOCAINE HCL 1% PF 5 ML AMPULE OTHER ONE (13:06)
[2017-02-01] MEDS ORDERED: NEOSTIGMINE 3 MG/3 ML SYR IV ONE (13:06)
[2017-02-01] MEDS ORDERED: ONDANSETRON HCL 4 MG/2 ML VIAL IV PUSH ONE (13:06)
[2017-02-01] MEDS ORDERED: AZITHROMYCIN 250 MG TAB PO SCH (13:45)
--- NOTE | 2017-02-01 16:56 | RADRPT ---
EXAM DATE/TIME: 02/01/2017 14:20 [facility] COMPARISON: HIP RIGHT (AP&LAT 2/3VWS) WO AP PELVIS, October 26, 2016, 11:34. INDICATIONS : Revision of a right anterior hip replacement. MEDICAL HISTORY : Arthritis. SURGICAL HISTORY : Previous right anterior hip replacement. ENCOUNTER: Initial ACUITY: 1 day PAIN SCORE: Non-responsive. LOCATION: Right anterior hip. FINDINGS: 2 AP views of the right hip were obtained and demonstrate the patient is status post right hip arthro plasty. The femoral and acetabular components are intact and in normal alignment. CONCLUSION: Expected postoperative change status post arthroplasty. Thanh Will MD on February 01, 2017 at 16:53 Board Certified Radiologist. This report was verified electronically.
[2017-02-01 16:59] LABS: REVIEW FLAG FINAL
[2017-02-01] MEDS ORDERED: ZOLPIDEM TARTRATE 5 MG TAB PO PRN (17:00)
[2017-02-01] MEDS ORDERED: ONDANSETRON HCL 4 MG/2 ML VIAL IVP PRN (17:00)
[2017-02-01] MEDS ORDERED: ALUMINUM/MAGNESIUM/SIMETH 30 ML CUP PO PRN (17:00)
[2017-02-01] MEDS ORDERED: Post-op Orders (for Pharmacy) MISC XX ONE (17:00)
[2017-02-01] MEDS ORDERED: ACETAMINOPHEN/HYDROcodone 325 MG/7.5 MG TAB PO PRN (17:00)
[2017-02-01] MEDS ORDERED: SODIUM CHLORIDE 0.9% FLUSH 5 ML FLUSH IVF PRN (17:00)
[2017-02-01 17:20] VITALS: BP 103/50; PULSE 100; RESP 16; TEMP 98; O2SAT 100
[2017-02-01] MEDS ORDERED: *ONDANSETRON 4 MG VIAL PERIprocedural Use ONLY ONE (17:23)
[2017-02-01] MEDS ORDERED: MORPHINE SULFATE 4 MG/ML INJ IM PRN (17:30)
[2017-02-01] MEDS ORDERED: ePHEDrine/NS 25 MG/5 ML SYR ONE (17:35)
[2017-02-01 17:45] VITALS: BP 105/58; PULSE 88; RESP 16; TEMP 97.8; O2SAT 100
[2017-02-01] MEDS ORDERED: DO NOT ADM ANY ANTICOAGULANT DRUGS PRN (18:00)
[2017-02-01] MEDS: LACTATED RINGER'S 1000 ML INJ 1,000 ML IV SCH ×2 (18:00→22:45)
[2017-02-01 18:16] LABS: HEMATOCRIT 35.7 % (39.0-51.0); REVIEW FLAG FINAL
[2017-02-01 18:30] LABS: HEMATOCRIT 12.3 % (39.0-51.0)
[2017-02-01] MEDS ORDERED: SODIUM CHLOR 0.9% 1000 ML INJ 2,000 ML ONE (19:22)
[2017-02-01] MEDS: SODIUM CHLORIDE 0.9% FLUSH 5 ML FLUSH IVF SCH (21:00)
[2017-02-01 21:13] VITALS: BP 97/65; PULSE 97; RESP 16; TEMP 97.9; O2SAT 97
[2017-02-01] MEDS: ACETAMINOPHEN/HYDROcodone 325 MG/7.5 MG TAB PO PRN (21:31)
[2017-02-02] VITALS (9 sets, daily range): BP systolic 84–106; BP diastolic 49–57; PULSE 77–94; RESP 16–17; TEMP 97.5–99.6; O2SAT 94–98
[2017-02-02] MEDS: LACTATED RINGER'S 1000 ML INJ 1,000 ML IV SCH ×2 (05:35→20:49)
[2017-02-02 05:53] LABS: INTERNATIONAL NORMALIZED RATIO 1.1 RATIO; PROTHROMBIN TIME - PATIENT 12.1 SEC (9.8-11.6)
--- NOTE | 2017-02-02 07:18 | HHI.FF ---
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 Call/text results to Fatimah VILCHIS [phone] Goal INR 1.5-1.8 I have seen patient Hussain Santiago on 02/02/17. My clinical findings support the need for the requested home health care services because: High risk of falls I certify that my clinical findings support that this patient is homebound because: Post-op weakness Fatimah Moreno Feb 02, 2017 07:18
--- NOTE | 2017-02-02 07:22 | PD.ORT.PN ---
Subjective Subjective Remarks pt doing better Objective Vitals Vital Signs Date Time Temp Pulse Resp B/P (MAP) Pulse Ox O2 Delivery O2 Flow Rate FiO2 02/02/17 04:00 97.8 79 16 87/49 (62) 97 02/02/17 02:15 86/49 (61) 02/02/17 00:05 98.1 79 17 84/56 (65) 98 02/01/17 21:13 97.9 97 16 97/65 (76) 97 02/01/17 20:54 97.5 108 16 102/58 (73) 97 Room Air 02/01/17 20:45 102 21 101/58 (72) 96 Room Air 02/01/17 20:30 103 20 101/58 (72) 98 Room Air 02/01/17 20:15 93 16 92/53 (66) 100 Nasal Cannula 2 02/01/17 20:00 82 16 91/50 (64) 98 Nasal Cannula 2 02/01/17 19:45 82 16 84/52 (63) 99 Nasal Cannula 2 02/01/17 19:30 88 16 83/51 (62) 100 Nasal Cannula 2 02/01/17 19:15 88 16 89/52 (64) 100 Nasal Cannula 2 02/01/17 19:00 96 16 84/53 (63) 100 Nasal Cannula 2 02/01/17 18:45 90 16 95/50 (65) 100 Nasal Cannula 2 02/01/17 18:30 86 16 99/55 (70) 100 Nasal Cannula 2 02/01/17 18:15 86 16 98/56 (70) 100 Nasal Cannula 2 02/01/17 18:00 80 16 100/61 (74) 100 Nasal Cannula 2 02/01/17 17:45 97.8 88 16 105/58 100 02/01/17 17:45 88 16 105/58 (74) 100 Nasal Cannula 2 02/01/17 17:30 84 16 108/60 (76) 100 Nasal Cannula 2 02/01/17 17:20 98.0 100 16 103/50 100 02/01/17 17:15 82 16 72/42 (52) 100 Nasal Cannula 2 02/01/17 17:10 98.0 100 16 103/50 (67) 100 Nasal Cannula 2 02/01/17 10:41 98.1 85 20 129/92 (104) 95 I/O 02/01/17 02/01/17 02/01/17 02/02/17 02/02/17 02/02/17 07:00 15:00 23:00 07:00 15:00 23:00 Intake Total 250 ml 5540 ml 360 ml Output Total 2600 ml 700 ml Balance 250 ml 2940 ml -340 ml Intake Oral 400 ml 360 ml IV Total 250 ml 4620 ml Packed Cells 500 ml Blood Product IV Normal Saline Flush 20 ml Output Urine Total 1300 ml 700 ml Estimated Blood Loss 1300 ml Result Diagram: 02/01/17 1800 Other Results Laboratory Tests Test 02/02/17 05:20 Prothromb Time International Ratio 1.1 RATIO Prothrombin Time 12.1 SEC (9.8-11.6) Objective Remarks seen by Dr. Herman Garcia right hip dressing dry and intact +NVI no calf tenderness, neg homans Assessment & Plan Assessment and Plan POD # 1 s/p R rev RAHEEM 50% wt bearing RLE low dose coumadin for DVT prop- 7.5 mg today h/h pending this am. hgb came back at 4 yesterday in PACU, received 1 unit and repeat hgb was 12. Hgb of 4 was most likely a lab error. Await hgb this am anticipate discharge home with home health care PT and nursing tomorrow check INR for Coumadin dosage [place] rx in chart Fatimah Moreno Feb 02, 2017 07:22
[2017-02-02] MEDS: AZITHROMYCIN 250 MG TAB PO SCH (08:09)
[2017-02-02] MEDS: SERTRALINE HCL 100 MG TAB PO SCH (08:10)
[2017-02-02] MEDS: SODIUM CHLORIDE 0.9% FLUSH 5 ML FLUSH IVF SCH ×2 (08:11→20:49)
--- NOTE | 2017-02-02 09:16 | MP ---
cc: CARO EISENBERG M.D. DATE OF SURGERY: 02/01/2017 PREOPERATIVE DIAGNOSIS 1. History of infected right total hip replacement arthroplasty. 2. Status post debridement of right hip, extensive, with placement of a temporary antibiotic-eluting unipolar spacer. POSTOPERATIVE DIAGNOSIS 1. History of infected right total hip replacement arthroplasty. 2. Status post debridement of right hip, extensive, with placement of a temporary antibiotic-eluting unipolar spacer. PROCEDURE 1. Irrigation with extensive debridement of right hip and removal of temporary antibiotic-eluting unipolar spacer. 2. Conversion to revision right total hip replacement arthroplasty. SURGEON Caro Eisenberg. FELT HAT POUNCING OPERATOR HAND SURGEON Herman Eisenberg. ANESTHESIA General. ESTIMATED BLOOD LOSS 1200 cc. INDICATIONS This patient is a 52-year-old white male status post previous right hip replacement arthroplasty in [place] several years ago who initially did well. He came under our care within the last year. He began developing increasing right hip pain. Investigative studies showed evidence of an infected total hip replacement arthroplasty. He had an anterior approach approximately 2-1/2 months ago with removal of previous hip replacement and extensive debridement with placement of a temporary antibiotic-eluting unipolar replacement and also placement of extensive calcium sulfate antibiotic-eluted beads. The patient had approximately 2 months of IV antibiotics for Streptococcus. He has had an excellent clinical response and has done well. All of his serologic markers have come back to normal. He had an aspiration of the hip which was also normal. He now presents for revision hip arthroplasty. COMPONENTS Company: [employer]. Cup: [place], 100 series, 58 mm, Gription surface. Liner: 36 mm, AltrX, neutral. Stem: [place], size 8, standard offset, hydroxyapatite-coated. Head: Delta Articul/mary ceramic, 36, +1.5 mm, 12/14 taper. DETAILS OF PROCEDURE The patient was brought to the operating room and anesthetized in the supine position. He was moved to the [place] fracture table with both legs held extended. The right hip and leg was scrubbed alcohol followed by Hibiclens followed by ChloraPrep and draped sterilely. The previous incision was excised. The fascia sandra was recreated. This was carried up to the top of the anterosuperior iliac spine. We needed to take down some the abductor mechanism, taking down approximately an inch and a half. This was left so that we could re-attach this with drill holes. The interval between the fascia sandra and the abductor muscles and the rectus muscle was created. The anterior aspect of the hip fragment was exposed. A subtotal capsulectomy was necessary. We then went ahead and fractured the femoral head using osteotome, removing his piecemeal. We were then able to dislocate the hip and remove the temporary antibiotic spacer. The wound had a totally benign appearance to it. Attention was first directed to the femur. The lifting hook was utilized and the leg placed in maximal external rotation. The leg was dropped to the floor and brought across midline. Deep retractors allowed good visualization. The canal was broached initially for a [place] stem. We did not have enough fit anterior to posterior proximally. We then changed to a [place] stem. We broached this to a size 7. We reamed with a flexible reamer distally allowing us to move up to size 8, having very good proximal fit. The temporary stem was removed. Attention was directed to the acetabulum. We had good visualization and this was deepened just slightly first and progressively reamed initially to a 57 mm reamer. A temporary cup had excellent fit and fill. We then reamed to 58 mm and placed a 58 mm, 100 series shell in approximately 40-45 degrees of abduction and about 15-20 degrees of forward flexion. The fit was excellent. A single hole eliminator was positioned followed by a 36 mm AltrX neutral liner. Attention was directed back to the stem. We trialed this first with a size 7 stem and found that we needed more length. We moved up to a size 8 stem and found that the leg length and offset was very good. We compared this to the nonoperative left hip. Preoperatively the patient was short by about 1.3 cm. We were able to bring the length back down to within a few millimeters of normal. The final stem was inserted and trial reduction showed that a +1.5 recreated proper offset and leg length. The wound was irrigated copiously. Hemostasis was controlled. The hip was reduced. With 60 degrees of external rotation the leg could be dropped to the floor without evidence of anterior subluxation. The hip appeared to be very stable. The abductor mechanism was repaired with interrupted #2 Tycron sutures through drill holes in the iliac crest. The fascia sandra was repaired with running 0 Vicryl on a loop. Local anesthesia was utilized. The subcutaneous tissue was approximated with interrupted 2-0 Vicryl suture and skin with running intradermal 3-0 Vicryl followed by benzoin, Steri-Strips and a sterile dressing. The patient was awakened and taken to the recovery room in satisfactory condition. FINDINGS That was fairly significant bone loss in the proximal femur. We were able to make up that with a component using a Bloom[place] stem which had better proximal geometry. We pushed up to size 8 stem to have better fit and regain leg length. That necessitated reaming the canal with a flexible reamer. Because of anterior exposure we could not use the typical [place] reamer. At the end of the procedure the patient's hip appeared to be very stable, offset and leg length appeared to be very close to normal. No complication was appreciated. MD MAR Ayers/VILMA /7:20 AM /8:42 AM [place]
[2017-02-02] MEDS ORDERED: INFLUENZA VIRUS VACCINE (QUADRIVALENT) 0.5 ML SYR IM ONE (10:00)
[2017-02-02 14:16] LABS: AUTOMATED NEUTROPHIL # 5.3 TH/MM3 (1.8-7.7); BASOPHIL % 0.3 % (0.0-2.0); EOSINOPHIL % 0.4 % (0.0-4.0); HEMATOCRIT 26.3 % (39.0-51.0); HEMO FLAGS DIFF FINAL; LYMPH % 22.4 % (9.0-44.0); LYMPHOCYTE # 1.7 TH/MM3 (1.0-4.8); MEAN CELL VOLUME 88.3 FL (80.0-100.0); MEAN CORPUSCULAR HEMOGLOBIN 30.7 PG (27.0-34.0); MEAN CORPUSCULAR HGB CONC 34.8 % (32.0-36.0); MONO % 8.4 % (0.0-8.0); NEUT % 68.5 % (16.0-70.0); PLATELET COUNT 141 TH/MM3 (150-450); RED BLOOD COUNT 2.98 MIL/MM3 (4.50-5.90); RED CELL DISTRIBUTION WIDTH 13.1 % (11.6-17.2); WHITE BLOOD COUNT 7.7 TH/MM3 (4.0-11.0)
[2017-02-02] MEDS: ACETAMINOPHEN/HYDROcodone 325 MG/7.5 MG TAB PO PRN ×2 (14:39→20:53)
[2017-02-02] MEDS ORDERED: WARFARIN SOD 7.5 MG TAB PO ONE (16:00)
[2017-02-02] MEDS ORDERED: WARFARIN SOD 5 MG TAB PO SCH (16:00)
[2017-02-02] MEDS: DOCUSATE SODIUM 100 MG CAP PO SCH (20:49)
[2017-02-03 04:00] VITALS: BP 102/61; PULSE 86; RESP 16; TEMP 99.2; O2SAT 95
[2017-02-03 05:31] LABS: HEMATOCRIT 25.9 % (39.0-51.0); REVIEW FLAG FINAL
[2017-02-03] MEDS: ACETAMINOPHEN/HYDROcodone 325 MG/7.5 MG TAB PO PRN ×2 (05:37→13:06)
[2017-02-03 05:39] LABS: INTERNATIONAL NORMALIZED RATIO 1.2 RATIO; PROTHROMBIN TIME - PATIENT 12.9 SEC (9.8-11.6)
[2017-02-03] MEDS ORDERED: COUM5TAB PO ×2 (07:09→12:40)
--- NOTE | 2017-02-03 07:15 | PD.ORT.PN ---
Subjective Subjective Remarks Pain controlled. Denies numbness, tingling. Denies fevers, chills, N/V. Objective Vitals Vital Signs Date Time Temp Pulse Resp B/P (MAP) Pulse Ox O2 Delivery O2 Flow Rate FiO2 02/03/17 04:00 99.2 86 16 102/61 (75) 95 02/02/17 23:40 99.6 87 17 100/54 (69) 94 02/02/17 20:00 99.0 85 16 99/54 (69) 95 02/02/17 16:00 98.8 94 16 106/57 (73) 95 02/02/17 15:47 16 02/02/17 11:28 98.0 78 16 100/56 (71) 98 02/02/17 08:53 98 Nasal Cannula 1.00 02/02/17 08:00 97.5 77 16 87/56 (66) 96 I/O 02/02/17 02/02/17 02/02/17 02/03/17 02/03/17 02/03/17 07:00 15:00 23:00 07:00 15:00 23:00 Intake Total 1510 ml 720 ml 720 ml 480 ml Output Total 700 ml 550 ml 600 ml Balance 810 ml 720 ml 170 ml -120 ml Intake Oral 360 ml 720 ml 720 ml 480 ml IV Total 1150 ml Output Urine Total 700 ml 550 ml 600 ml # Voids 3 # Bowel Movements 1 Result Diagram: 02/03/17 0516 Other Results Laboratory Tests Test 02/03/17 05:16 Prothromb Time International Ratio 1.2 RATIO Prothrombin Time 12.9 SEC (9.8-11.6) Objective Remarks right hip dressing dry and intact +NVI no calf tenderness, neg homans Assessment & Plan Assessment and Plan POD #2 s/p R rev RAHEEM 50% wt bearing RLE low dose coumadin for DVT prop- 5 mg today Hgb 9.9 this morning. Discharge home with home health care PT and nursing today INR 1.2 this morning [place] & Coumadin rx in chart Maxine Mcnally MD Feb 03, 2017 07:15
[2017-02-03 08:00] VITALS: BP 108/59; PULSE 82; RESP 19; TEMP 98.4; O2SAT 96
[2017-02-03] MEDS: SODIUM CHLORIDE 0.9% FLUSH 5 ML FLUSH IVF SCH (09:00)
[2017-02-03] MEDS: AZITHROMYCIN 250 MG TAB PO SCH (09:27)
[2017-02-03] MEDS: DOCUSATE SODIUM 100 MG CAP PO SCH (09:27)
[2017-02-03] MEDS: SERTRALINE HCL 100 MG TAB PO SCH (09:28)
[2017-02-03 12:00] VITALS: BP 107/59; PULSE 73; RESP 18; TEMP 98.6; O2SAT 95
[2017-02-03] MEDS ORDERED: HYDR-3288 PO ×2 (12:34→12:36)
[2017-02-03] MEDS ORDERED: WARFARIN SOD 5 MG TAB PO SCH (16:00)
== END 2017-02-03 14:48 | disposition home or self-care (01) | DRG 941 ==
LOC: HSDI 09:28 → N06B 21:03
PROVIDERS: ADMIT Orthopaedic Surgery Orthopaedic Surgery of the Spine; ATTEND Orthopaedic Surgery Orthopaedic Surgery of the Spine
PROC: 0SR904A Replacement of Right Hip Joint with Ceramic on Polyethylene Synthetic Substitute, Uncemented, Open Approach (ICD-10-PCS; 2017-02-01)
PROC: 0SP908Z Removal of Spacer from Right Hip Joint, Open Approach (ICD-10-PCS; 2017-02-01)
PROC: 30233N1 Transfusion of Nonautologous Red Blood Cells into Peripheral Vein, Percutaneous Approach (ICD-10-PCS; principal; 2017-02-01 13:03)
DX: T84.51XD Infection and inflammatory reaction due to internal right hip prosthesis, subsequent encounter (principal); E78.5 Hyperlipidemia, unspecified; D64.9 Anemia, unspecified; Z23 Encounter for immunization
CPT/HCPCS: 36430; 73502; 76000; 85014; 85018; 85025; 85610; 86850; 86900; 86901; 86920; 90686; 94150; C1776; J0131; J0330; J0690; J0735; J1100; J1580; J1885; J2250; J2370; J2405; J2710; J2795; J3010; J3370; J7030; J7050; J7120; P9016; Q2038